=== PATIENT | male | born 1940 | race Caucasian/White ===

== ENCOUNTER 2017-09-27 10:52 | Observation (INO) | payer OTHER, MEDICARE ==
--- NOTE | 2017-09-27 12:33 | ER Document Report ---
ED General - General Chief Complaint: Shortness Of Breath Stated Complaint: BREATHING ISSUES Time Seen by Provider: 09/27/17 11:45 Notes: 77-year-old male. Previous heavy smoker. Increasing shortness of breath over the last several days. Went to see his primary care doctor provider earlier this week. Was prescribed an antibiotic and told to get labs and chest x-ray she was concerned about pneumonia. Prior to this episode he was having some fever and chills and thought he might of had the flu about a week prior. Denies history of COPD but does state he was the biggest smoker you would ever have met up until about 10 years ago. Would get bronchitis on a regular basis. Denies any fevers at this time. Does get winded with exertion. TRAVEL OUTSIDE OF THE [place] IN LAST 30 DAYS: No - HPI Onset: Last week Onset/Duration: Gradual - Related Data Allergies/Adverse Reactions: No Known Allergies Allergy (Verified 08/04/16 08:57) Past Medical History - General Information source: Patient - Social History Smoking Status: Former Smoker Cigarette use (# per day): No Smoking Education Provided: No Frequency of alcohol use: None Drug Abuse: None Lives with: Alone Family History: Reviewed & Not Pertinent - Past Medical History Cardiac Medical History: Denies: Hx Heart Attack, Hx Hypertension - WHITE COAT Pulmonary Medical History: Denies: Hx Asthma Neurological Medical History: Denies: Hx Cerebrovascular Accident, Hx Seizures Endocrine Medical History: Reports: Hx Diabetes Mellitus Type 2 Malignancy Medical History: Reports Hx Colorectal Cancer GI Medical History: Denies: Hx Hepatitis, Hx Hiatal Hernia, Hx Ulcer Infectious Medical History: Denies: Hx Hepatitis Past Surgical History: Reports: Hx Bowel Surgery - colostomy. Denies: Hx Open Heart Surgery, Hx Pacemaker Review of Systems - Review of Systems Constitutional: denies: Fever, Malaise, Weakness EENT: denies: Ear pain, Sinus pressure, Throat pain, Difficulty swallowing, Mouth pain Cardiovascular: denies: Chest pain, Palpitations, Heart racing, Dyspnea, Syncope , Dizziness Respiratory: Cough, Short of breath, Wheezing Gastrointestinal: denies: Abdominal pain, Diarrhea, Nausea Genitourinary: denies: Burning, Dysuria, Discharge Musculoskeletal: denies: Joint swelling, Muscle pain, Muscle stiffness, Neck pain, Deformity, Leg swelling, Ankle swelling Skin: denies: Change in color, Lesions, Lumps, Rash Hematologic/Lymphatic: denies: Anemia, Blood clots, Easy bleeding, Easy bruising Neurological/Psychological: denies: Confusion, Dementia, Weakness, Numbness Physical Exam - Vital signs Vitals: Temp Pulse Resp BP Pulse Ox 97.7 F 98 24 H 156/90 H 92 09/27/17 10:59 09/27/17 10:59 09/27/17 10:59 09/27/17 10:59 09/27/17 10:59 Interpretation: Normal - General General appearance: Appears well, Alert - HEENT Head: Normocephalic, Atraumatic Eyes: Normal Pupils: PERRL - Respiratory Respiratory status: No respiratory distress Chest status: Nontender Breath sounds: Rales, Wheezing Chest palpation: Normal - Cardiovascular Rhythm: Regular Heart sounds: Normal auscultation Murmur: No - Abdominal Inspection: Normal Distension: No distension Bowel sounds: Normal Tenderness: Nontender Organomegaly: No organomegaly Notes: Ostomy bag present - Back Back: Normal, Nontender - Extremities General upper extremity: Normal inspection, Nontender, Normal color, Normal ROM , Normal temperature. No: Edema General lower extremity: Normal inspection, Nontender, Normal color, Normal ROM , Normal temperature, Normal weight bearing. No: Edema, Marie's sign - Neurological Neuro grossly intact: Yes Cognition: Normal Orientation: AAOx4 Suki Coma Scale Eye Opening: Spontaneous Hawks Coma Scale Verbal: Oriented Hawks Coma Scale Motor: Obeys Commands Hawks Coma Scale Total: 15 Speech: Normal Motor strength normal: LUE, RUE, LLE, RLE Sensory: Normal - Psychological Associated symptoms: Normal affect, Normal mood - Skin Skin Temperature: Warm Skin Moisture: Dry Skin Color: Normal Course - Re-evaluation Re-evalutation: 09/27/17 14:19 Laboratory 09/27/17 09/27/17 09/27/17 13:18 13:18 13:18 WBC 9.3 RBC 5.54 Hgb 17.1 H Hct 49.6 MCV 90 MCH 31.0 MCHC 34.6 RDW 12.7 Plt Count 351 Seg Neutrophils % 63.8 Lymphocytes % 24.7 Monocytes % 9.0 Eosinophils % 1.9 Basophils % 0.6 Absolute Neutrophils 5.9 Absolute Lymphocytes 2.3 Absolute Monocytes 0.8 Absolute Eosinophils 0.2 Absolute Basophils 0.1 Sodium 142.6 Potassium 4.5 Chloride 102 Carbon Dioxide 29 Anion Gap 12 BUN 11 Creatinine 0.76 Est GFR ( Amer) > 60 Est GFR (Non-Af Amer) > 60 Glucose 119 H Calcium 9.5 Total Bilirubin 0.9 Direct Bilirubin 0.3 Neonat Total Bilirubin Not Reportable Neonat Direct Bilirubin Not Reportable Neonat Indirect Bili Not Reportable AST 34 ALT 38 Alkaline Phosphatase 80 Creatine Kinase 77 CK-MB (CK-2) 0.65 Troponin I < 0.012 NT-Pro-B Natriuret Pep 76 Total Protein 7.2 Albumin 4.4 Chest X-Ray 09/27/17 12:33 IMPRESSION: 1. COPD and mild chronic interstitial changes. 2. Possible 1.4 cm mass on the lateral view in the retrosternal airspace. Patient definitely has a COPD presentation. Of note 1.4 cm mass on the lateral view in the retrosternal airspace needs further evaluation. Will CT scan chest at this time as patient was a heavy smoker. Patient seems to be better at this time. Lungs with still small amount of wheezing but vital signs are normal and labs are normal. Patient is already on antibiotics and a inhaler but no steroids. Solu-Medrol was given. 09/27/17 16:10 We will admit at this time for COPD exacerbation. Consulted hospitalist. Dr. chinchilla to admit. - Vital Signs Vital signs: Temp Pulse Resp BP Pulse Ox 97.7 F 98 15 131/75 H 95 09/27/17 10:59 09/27/17 10:59 09/27/17 15:01 09/27/17 15:01 09/27/17 15:01 - Laboratory Result Diagrams: 09/27/17 13:18 09/27/17 13:18 Laboratory results interpreted by me: 09/27/17 09/27/17 13:18 13:18 Hgb 17.1 H Glucose 119 H - EKG Interpretation by Sd EKG shows normal: Sinus rhythm, Slater, Intervals, QRS Complexes, ST-T Waves Discharge - Discharge Clinical Impression: COPD exacerbation Condition: Good Disposition: ADMITTED INPATIENT Admitting Provider: Hospitalist - Dr. chinchilla Unit Admitted: Medical Floor Referrals: IGGY SANDS PA [Primary Care Provider] - Follow up as needed
[2017-09-27] MEDS ORDERED: METHYLPREDNISOLONE INJ 125 MG/2 ML SDV IV ONE (12:34)
[2017-09-27] MEDS ORDERED: ALBUTEROL SULFATE 0.083% NEB 2.5 MG/3 ML AMPUL NEB ONE (12:35)
[2017-09-27 13:35] LABS: ABSOLUTE BASOPHILS # (AUTO) 0.1 10^3/uL (0.0-0.2); ABSOLUTE EOSINOPHILS # (AUTO) 0.2 10^3/uL (0.0-0.6); ABSOLUTE LYMPHOCYTES (AUTO) 2.3 10^3/uL (0.5-4.7); ABSOLUTE MONOCYTES (AUTO) 0.8 10^3/uL (0.1-1.4); ABSOLUTE NEUT (AUTO) 5.9 10^3/uL (1.7-8.2); BASOPHILS % (AUTO) 0.6 % (0-2); EOSINOPHILS % (AUTO) 1.9 % (0-6); HEMATOCRIT 49.6 % (37.9-51.0); HEMOGLOBIN 17.1 g/dL (13.5-17.0); LYMPHOCYTES % (AUTO) 24.7 % (13-45); MEAN CORPUSCULAR HGB CONC 34.6 g/dL (32.0-36.0); MEAN CORPUSCULAR VOLUME 90 fl (80-97); PLATELET COUNT 351 10^3/uL (150-450); RED BLOOD COUNT 5.54 10^6/uL (4.35-5.55); RED CELL DISTRIBUTION WIDTH 12.7 % (11.5-14.0); SEGMENTED NEUTROPHILS % (AUTO) 63.8 % (42-78); TOTAL CELLS COUNTED % (AUTO) 100 %; WHITE BLOOD COUNT 9.3 10^3/uL (4.0-10.5)
--- NOTE | 2017-09-27 13:45 | RADIOLOGY REPORT (SQ) ---
EXAM DESCRIPTION: CHEST PA/LAT COMPLETED DATE/TIME: 09/27/2017 1:32 pm REASON FOR STUDY: sob COMPARISON: 02/10/2014 EXAM PARAMETERS: NUMBER OF VIEWS: two views TECHNIQUE: Digital Frontal and Lateral radiographic views of the chest acquired. RADIATION DOSE: NA LIMITATIONS: none FINDINGS: LUNGS AND PLEURA: COPD and mild chronic interstitial changes. Possible 1.4 cm mass on the lateral view in the retrosternal airspace not clearly visualized on the PA view. Lungs appear free of active infiltrates. No effusions. MEDIASTINUM AND HILAR STRUCTURES: No masses or contour abnormalities. HEART AND VASCULAR STRUCTURES: Heart normal size. No evidence for failure. BONES: No acute findings. HARDWARE: None in the chest. OTHER: No other significant finding. IMPRESSION: 1. COPD and mild chronic interstitial changes. 2. Possible 1.4 cm mass on the lateral view in the retrosternal airspace. TECHNICAL DOCUMENTATION: JOB ID: [id number] [email or web address]- All Rights Reserved
--- NOTE | 2017-09-27 13:53 | EKG REPORT ---
SEVERITY:- BORDERLINE ECG - SINUS RHYTHM PROBABLE LEFT ATRIAL ABNORMALITY : Confirmed by: Edward Rod MD 27-Sep-2017 13:52:17
[2017-09-27 13:57] LABS: ALANINE AMINOTRANSFERASE 38 U/L (21-72); ALBUMIN 4.4 g/dL (3.5-5.0); ALKALINE PHOSPHATASE 80 U/L (38-126); ANION GAP 12 (5-19); ASPARTATE AMINO TRANSFERASE 34 U/L (17-59); BILIRUBIN,DIRECT 0.3 mg/dL (0.0-0.4); BILIRUBIN,TOTAL 0.9 mg/dL (0.2-1.3); BLOOD UREA NITROGEN 11 mg/dL (7-20); CALCIUM 9.5 mg/dL (8.4-10.2); CARBON DIOXIDE 29 mmol/L (22-30); CHLORIDE 102 mmol/L (98-107); CREATINE KINASE 77 U/L (55-170); GLUCOSE 119 mg/dL (75-110); POTASSIUM 4.5 mmol/L (3.6-5.0); SODIUM 142.6 mmol/L (137-145); TOTAL PROTEIN 7.2 g/dL (6.3-8.2)
[2017-09-27 14:06] LABS: CREATINE KINASE MB 0.65 ng/mL (<4.55); NT PRO BNP 76 pg/mL (<450)
[2017-09-27 14:07] LABS: TROPONIN I < 0.012 ng/mL
--- NOTE | 2017-09-27 15:13 | RADIOLOGY REPORT (SQ) ---
EXAM DESCRIPTION: CT CHEST WITH COMPLETED DATE/TIME: 09/27/2017 2:43 pm REASON FOR STUDY: possible mass on xray COMPARISON: None. TECHNIQUE: CT scan of the chest performed using helical scanning technique with dynamic intravenous contrast injection. Images reviewed with lung, soft tissue and bone windows. Reconstructed coronal and sagittal MPR images reviewed. All images stored on PACS. All CT scanners at this facility use dose modulation, iterative reconstruction, and/or weight based d osing when appropriate to reduce radiation dose to as low as reasonably achievable (ALARA). [facility]: Dose Right [facility]: CareDose [facility]: Dose Right [facility]: Teradose 4D [facility]: Neocleus CONTRAST TYPE AND DOSE: contrast/concentration: Isovue 370.00 mg/ml; Total Contrast Delivered: 80.0 ml; Total Saline Delivered: 43.5 ml RENAL FUNCTION: Creatinine: 0.76 RADIATION DOSE: CT Rad equipment meets quality standard of care and radiation dose reduction techniq ues were employed. CTDIvol: 8.5 mGy. DLP: 343 mGy-cm. . LIMITATIONS: None. FINDINGS: LUNGS AND PLEURA: Changes of centrilobular emphysema with bullous disease in apices. The re is evidence of a spiculated mass contiguous with the anterior mediastinum in the left upper lobe m easuring 0.9 cm in transverse diameter x 0.9 cm in AP diameter x 1.2 cm in height (image number [id number] series 4). Findings are consistent with carcinoma. HILAR AND MEDIASTINAL STRUCTURES: Small AP window, pretracheal and right hilar nodes. HEART AND VASCULAR STRUCTURES: Atherosclerotic coronary artery calcification. Atherosclerotic change s of the thoracic aortic arch. UPPER ABDOMEN: Hiatal hernia is noted. No abnormality of the liver and right adrenal gland demonstr ate no abnormality. Prominent left adrenal gland. Spleen demonstrates a definite abnormality. Find ings consistent with accessory splenic tissue medial to the spleen adjacent to left adrenal. THYROID AND OTHER SOFT TISSUES: Multinodular thyroid gland with prominent hypodense mass left thyroid gland measuring 2.5 cm and calcified nodule lower pole right thyroid gland measuring 1.7 cm. Hypode nse nodule posterior lower pole right thyroid gland measured 1.3 cm. BONES: No significant finding. OTHER: No other significant finding. IMPRESSION: 1. Evidence 0.9 cm spiculated mass anterior segment left upper lobe. Carcinoma must be considered. 2. Changes of centrilobular emphysema and chronic bibasilar interstitial fibrosis. 3. Prominent left adrenal with adrenal adenoma not excluded. 4. Multinodular thyroid. TECHNICAL DOCUMENTATION: JOB ID: [id number] Quality ID # [id number]: Final reports with documentation of one or more dose reduction techniques (e.g., Au tomated exposure control, adjustment of the mA and/or kV according to patient size, use of iterative reconstruction technique) 2010 [email or web address]- All Rights Reserved
[2017-09-27] MEDS ORDERED: ONDANSETRON HCL INJ/PF 4 MG/2 ML SDV IV PRN (16:10)
[2017-09-27] MEDS ORDERED: ACETAMINOPHEN 325 MG TABLET PO PRN (16:10)
[2017-09-27] MEDS ORDERED: NORMAL SALINE 1000 ML 1,000 ML IV PRN (16:10)
[2017-09-27] MEDS ORDERED: BUDESONIDE NEB 0.5 MG/2 ML AMPUL NEB ONE (16:18)
[2017-09-27] MEDS ORDERED: GUAIFENESIN 600 MG TABLET.SA PO ONE (16:18)
[2017-09-27] MEDS ORDERED: DEXTROSE 50%-WATER 25 GM/50 ML DISP.SYRIN IV PRN ×2 (16:21)
[2017-09-27] MEDS ORDERED: GLUCAGON,HUMAN RECOMB 1 MG INJ IM PRN (16:21)
[2017-09-27] MEDS ORDERED: DEXTROSE 40% GEL 15 GM TUBE PO PRN ×2 (16:21)
[2017-09-27] MEDS ORDERED: (PENDING PHARMACY ID) (Nepafenac [Ilevro] 1 DROP) OP SCH (16:30)
[2017-09-27] MEDS ORDERED: BESIFLOXACIN HCL 0.6% OPH SUSP 5 ML BOTTLE OP SCH (16:30)
[2017-09-27] MEDS ORDERED: (PENDING PHARMACY ID) (Difluprednate [Durezol] 1 DROP) OP SCH (16:30)
[2017-09-27] MEDS ORDERED: LEVOFLOXACIN 500 MG TABLET PO ONE (17:30)
[2017-09-27] MEDS ORDERED: OSELTAMIVIR PHOSPHATE 75 MG CAPSULE PO SCH (18:00)
[2017-09-27] MEDS ORDERED: MAGNESIUM SULFATE/D5W 1 GM/100 ML RTUPB IV ONE (18:00)
[2017-09-27] MEDS: LACTOBACILLUS ACIDOPHILUS 250 MG TAB PO SCH (18:34)
[2017-09-27] MEDS: IPRATROPIUM/ALBUTEROL 0.5-2.5 MG/3 ML AMPUL NEB SCH ×2 (20:11→23:43)
--- NOTE | 2017-09-27 20:51 | PDOC H&P ---
History of Present Illness Admission Date/PCP: 09/27/17 16:31 SRINATH FRANCISCO Patient complains of: Shortness of breath History of Present Illness: MANISH SHANNON is a 77 year old male with a history of COPD and diabetes. Patient states starting about a week ago he was having some shortness of breath and cough. Patient stated he felt a little bit better but then the symptoms started again. Patient went to see his PCP 1 day prior to presenting to the ED for his shortness of breath. At home patient was having a cough productive of clear sputum. Patient was advised to get some Mucinex and he was given a prescription for Augmentin. Patient took 2 doses of the Augmentin and developed diarrhea and stopped taking the medication. Patient states he became more short of breath and therefore came here for further evaluation. Patient states he has a history of bronchitis. Patient smoked for 62 years prior to stopping 8 years ago. Patient denies any fevers or chills. She does not lie flat while sleeping however this is chronic in nature. Patient states he is just more comfortable that way. Patient denies any swelling in his lower extremities. In the ED patient was noted to have a clear chest x-ray and a CT scan that did show a nodule but otherwise clear. Patient was given steroids and Solu-Medrol. Hospitalist was called to observe patient for COPD exacerbation. Past Medical History Cardiac Medical History: Denies: Myocardial Infarction, Hypertension - WHITE COAT Pulmonary Medical History: Denies: Asthma Neurological Medical History: Denies: Seizures Endocrine Medical History: Reports: Diabetes Mellitus Type 2 Malignancy Medical History: Reports: Colorectal Cancer GI Medical History: Denies: Hepatitis, Hiatal Hernia Hematology: Denies: Anemia, Sickle Cell Disease Past Surgical History Past Surgical History: Reports: Other - Colostomy due to diverticulitis/colon cancer resulting in bowel resection Denies: Pacemaker Social History Lives with: Alone Smoking Status: Former Smoker Last Time Smoked: 8 years - Advance Directive Resuscitation Status: Full Code Family History Family History: Thyroid Disfunction Parental Family History Reviewed: No Children Family History Reviewed: No Sibling(s) Family History Reviewed.: No Medication/Allergy Home Medications: Ascorbic Acid [Vitamin C 500 mg Tablet] 500 mg PO DAILY 09/27/17 Cholecalciferol (Vitamin D3) [Vitamin D3 1000 Unit Tablet] 1,000 unit PO DAILY 09/27/17 Insulin Glargine,Hum.rec.anlog [Lantus] 24 unit SQ DAILY@1700 09/27/17 Multivitamin [Tab-A-Ilene (Multiple Vitamin) Tablet] 1 tab PO DAILY 09/27/17 [place]-3 Fatty Acids/Fish Oil [Fish Oil 1,000 mg Capsule] 1 cap PO DAILY Vitamin B Complex [B Complex] 1 tab PO DAILY 09/27/17 Allergies/Adverse Reactions: No Known Allergies Allergy (Verified 08/04/16 08:57) Review of Systems Constitutional: ABSENT: chills, fever(s), headache(s), weight gain, weight loss Eyes: ABSENT: visual disturbances Ears: ABSENT: hearing changes Cardiovascular: ABSENT: chest pain, edema, orthropnea, palpitations Respiratory: PRESENT: cough, dyspnea, sputum. ABSENT: hemoptysis Gastrointestinal: PRESENT: diarrhea. ABSENT: abdominal pain, constipation, hematemesis, hematochezia, nausea, vomiting Genitourinary: ABSENT: dysuria, hematuria Musculoskeletal: ABSENT: joint swelling Integumentary: ABSENT: rash, wounds Neurological: ABSENT: abnormal gait, abnormal speech, confusion, dizziness, focal weakness, syncope Psychiatric: ABSENT: anxiety, depression, homidical ideation, suicidal ideation Endocrine: ABSENT: cold intolerance, heat intolerance, polydipsia, polyuria Hematologic/Lymphatic: ABSENT: easy bleeding, easy bruising Physical Exam Vital Signs: Temp Pulse Resp BP Pulse Ox 97.7 F 98 25 H 137/90 H 94 09/27/17 10:59 09/27/17 10:59 09/27/17 18:01 09/27/17 18:01 09/27/17 18:01 General appearance: PRESENT: no acute distress, well-developed, well-nourished Head exam: PRESENT: normocephalic Eye exam: PRESENT: EOMI. ABSENT: scleral icterus Ear exam: PRESENT: normal external ear exam Mouth exam: PRESENT: moist Neck exam: ABSENT: carotid bruit, JVD, lymphadenopathy, thyromegaly Respiratory exam: PRESENT: crackles - Bilateral bases, unlabored - Patient speaking in complete sentences without any signs of distress or pauses, wheezes - Intermittent wheezing. ABSENT: rales, rhonchi Cardiovascular exam: PRESENT: RRR. ABSENT: diastolic murmur, rubs, systolic murmur GI/Abdominal exam: PRESENT: normal bowel sounds, soft, other - Colostomy in place with air. ABSENT: distended, guarding, mass, organolmegaly, rebound, tenderness Rectal exam: PRESENT: deferred Extremities exam: PRESENT: full ROM. ABSENT: calf tenderness, clubbing, pedal edema Neurological exam: PRESENT: alert, awake, oriented to person, oriented to place , oriented to time, oriented to situation, CN II-XII grossly intact. ABSENT: motor sensory deficit Psychiatric exam: PRESENT: appropriate affect, normal mood. ABSENT: homicidal ideation, suicidal ideation Skin exam: PRESENT: dry, intact, warm. ABSENT: cyanosis, rash Results Laboratory Results: 09/27/17 09/27/17 09/27/17 13:18 13:18 13:18 WBC 9.3 RBC 5.54 Hgb 17.1 H Hct 49.6 MCV 90 MCH 31.0 MCHC 34.6 RDW 12.7 Plt Count 351 Seg Neutrophils % 63.8 Lymphocytes % 24.7 Monocytes % 9.0 Eosinophils % 1.9 Basophils % 0.6 Absolute Neutrophils 5.9 Absolute Lymphocytes 2.3 Absolute Monocytes 0.8 Absolute Eosinophils 0.2 Absolute Basophils 0.1 Sodium 142.6 Potassium 4.5 Chloride 102 Carbon Dioxide 29 Anion Gap 12 BUN 11 Creatinine 0.76 Est GFR ( Amer) > 60 Est GFR (Non-Af Amer) > 60 Glucose 119 H POC Glucose Calcium 9.5 Total Bilirubin 0.9 Direct Bilirubin 0.3 AST 34 ALT 38 Alkaline Phosphatase 80 Creatine Kinase 77 CK-MB (CK-2) 0.65 Troponin I < 0.012 NT-Pro-B Natriuret Pep 76 Total Protein 7.2 Albumin 4.4 09/27/17 18:38 WBC RBC Hgb Hct MCV MCH MCHC RDW Plt Count Seg Neutrophils % Lymphocytes % Monocytes % Eosinophils % Basophils % Absolute Neutrophils Absolute Lymphocytes Absolute Monocytes Absolute Eosinophils Absolute Basophils Sodium Potassium Chloride Carbon Dioxide Anion Gap BUN Creatinine Est GFR ( Amer) Est GFR (Non-Af Amer) Glucose POC Glucose 183 H Calcium Total Bilirubin Direct Bilirubin AST ALT Alkaline Phosphatase Creatine Kinase CK-MB (CK-2) Troponin I NT-Pro-B Natriuret Pep Total Protein Albumin Impressions: Chest X-Ray 09/27/17 12:33 IMPRESSION: 1. COPD and mild chronic interstitial changes. 2. Possible 1.4 cm mass on the lateral view in the retrosternal airspace. Chest CT 09/27/17 14:15 IMPRESSION: 1. Evidence 0.9 cm spiculated mass anterior segment left upper lobe. Carcinoma must be considered. 2. Changes of centrilobular emphysema and chronic bibasilar interstitial fibrosis. 3. Prominent left adrenal with adrenal adenoma not excluded. 4. Multinodular thyroid. Assessment & Plan - Diagnosis (1) COPD exacerbation Is this a current diagnosis for this admission?: Yes Plan: She with COPD exacerbation. Patient with known tobacco history in the past but has since quit. Patient on Solu-Medrol, Levaquin, DuoNeb's, budesonide and Singulair. Patient is also on Mucinex. (2) Type 2 diabetes mellitus Is this a current diagnosis for this admission?: Yes Plan: Patient normally takes insulin at home. Patient started on sliding scale insulin here. Patient may have higher blood glucoses considering that patient is on Solu-Medrol. Patient last hemoglobin A1c was reported to be 7.1 per the patient. (3) Lung mass Is this a current diagnosis for this admission?: Yes Plan: Patient with a left upper lobe spiculated mass. This can be further evaluated as outpatient. Will consult pulmonology to see if they recommend anything acutely. There is definitely concern for malignancy considering patient prolong spoke history of 62 years. Patient did quit 8 years ago however patient still at risk. - Time Time Spent: 30 to 50 Minutes Anticipated discharge: Home Within: within 24 hours - Inpatient Certification Medical Necessity: Failure to Improve With Outpatient Therapy, Need for Nebulizer Therapy and Monitoring of Response
[2017-09-27] MEDS ORDERED: MONTELUKAST SODIUM 10 MG TABLET PO SCH (22:00)
[2017-09-27] MEDS ORDERED: INSULIN GLARGINE,HUM.REC.ANLOG 1,000 UNIT/10 ML UNIT SUBCUT SCH (22:00)
[2017-09-27] MEDS: METHYLPREDNISOLONE INJ 40 MG/1 ML SDV IV SCH (22:03)
[2017-09-27] MEDS: GUAIFENESIN 600 MG TABLET.SA PO SCH (22:05)
[2017-09-27] MEDS: INSULIN LISPRO 100 UNIT/ML 3 ML VIAL SUBCUT PRN (22:12)
[2017-09-28] MEDS: IPRATROPIUM/ALBUTEROL 0.5-2.5 MG/3 ML AMPUL NEB SCH ×2 (04:18→08:10)
[2017-09-28] MEDS: METHYLPREDNISOLONE INJ 40 MG/1 ML SDV IV SCH (04:58)
[2017-09-28] MEDS ORDERED: LANSOPRAZOLE 30 MG TAB.RAP.DR PO SCH (06:00)
[2017-09-28 06:12] LABS: HEMATOCRIT 43.8 % (37.9-51.0); MEAN CORPUSCULAR HEMOGLOBIN 31.1 pg (27.0-33.4); MEAN CORPUSCULAR HGB CONC 34.2 g/dL (32.0-36.0); MEAN CORPUSCULAR VOLUME 91 fl (80-97); PLATELET COUNT 336 10^3/uL (150-450); RED BLOOD COUNT 4.82 10^6/uL (4.35-5.55); RED CELL DISTRIBUTION WIDTH 12.9 % (11.5-14.0); WHITE BLOOD COUNT 7.4 10^3/uL (4.0-10.5)
[2017-09-28 06:33] LABS: ANION GAP 16 (5-19); BLOOD UREA NITROGEN 18 mg/dL (7-20); CALCIUM 9.2 mg/dL (8.4-10.2); CHLORIDE 105 mmol/L (98-107); GLUCOSE 268 mg/dL (75-110); POTASSIUM 4.5 mmol/L (3.6-5.0); SODIUM 140.4 mmol/L (137-145)
[2017-09-28 06:40] LABS: CARBON DIOXIDE 19 mmol/L (22-30)
[2017-09-28] MEDS: INSULIN LISPRO 100 UNIT/ML 3 ML VIAL SUBCUT PRN ×2 (09:14→12:03)
[2017-09-28] MEDS: GUAIFENESIN 600 MG TABLET.SA PO SCH (09:14)
[2017-09-28] MEDS: LACTOBACILLUS ACIDOPHILUS 250 MG TAB PO SCH (09:14)
[2017-09-28] MEDS ORDERED: LEVOFLOXACIN 500 MG TABLET PO SCH (10:00)
[2017-09-28] MEDS ORDERED: ALBUTEROL SULFATE 0.083% NEB 2.5 MG/3 ML AMPUL NEB PRN (11:06)
[2017-09-28 12:09] VITALS: BP 132/59
--- NOTE | 2017-09-28 12:48 | DISCHARGE SUMMARY E ---
Discharge Summary NAME: MANISH SHANNON : 1940 AGE: 77Y ADMITTED: 09/27/2017 DISCHARGED: 09/28/2017 CODE STATUS: FULL CODE. PRIMARY CARE PROVIDER: SRINATH Vallejo DISCHARGE DIAGNOSES: 1. Chronic obstructive pulmonary disease exacerbation. 2. Vtarf-nd-odzgenr hypoxemic respiratory failure, no long requiring O2. 3. Diabetes mellitus type 2. 4. Left upper lobe spiculated mass. DISCHARGE MEDICATIONS: 1. Fish oil 1000 mg p.o. daily. 2. Prednisone 60 mg taper. 3. Singulair 10 mg p.o. at hour of sleep, 60 tablets with 0 refills. 4. Levaquin 500 mg p.o. daily, 6 tablets with 0 refills. 5. Ventolin 2.5 mg nebs q.6 hours p.r.n., 30 with 0 refills. 6. Vitamin B complex 1 tablet p.o daily. 7. Multivitamin 1 tablet p.o. daily. 8. Lantus 24 units subcu daily. 9. Vitamin D 1000 units p.o. daily. 10. Vitamin C 500 mg p.o. daily. DIET: Diabetic, heart healthy. ACTIVITY: As tolerated. CONDITION: Fair. DIAGNOSTICS: Lab values are as follow: Hematology obtained on 09/28/2017: WBCs are 7.4, hemoglobin is 15.0, hematocrit is 43.8, platelet count is 336,000. Chemistry obtained on 09/28/2017: Sodium is 140, potassium 4.5, chloride is 105, carbon dioxide 19, BUN 18, creatinine 0.81, glucose 268, calcium 9.2, magnesium is 2.1, bilirubin is 0.9, AST 34, ALT 38, alk phos 80, CK 77, CK-MB is 0.65, troponin is 0.012, BNP is 76, total protein 7.2, albumin 4.4. Chest x-ray obtained on 09/27/2017 reveals COPD with mild interstitial changes. Possible 1.4 cm mass on the lateral view of the retrosternal air space. Chest CT obtained on 09/27/2017 reveals evidence of a 0.9 cm spiculated mass anterior segment of the left upper lobe. Changes of central lobular emphysema and chronic bibasilar interstitial fibrosis. Prominent left adrenal and adrenal adenoma cannot be excluded. Multinodular thyroid. PHYSICAL EXAMINATION: GENERAL: On examination, the patient is a well-developed, reasonably nourished, 77-year-old male who is awake, alert, and oriented to person, place, time, and situation. He is verbal, conversational, and does not appear to be in any acute distress. VITAL SIGNS: Temperature 97.2, pulse 115, respirations 20, blood pressure 149/81, oxygen saturation is 94% on room air. SKIN: Warm and dry. No rash. He is not diaphoretic. HEENT: Pupils equal, round, reactive to light and accommodation. Conjunctivae are pink. No evidence of JVP. CARDIOVASCULAR: Heart is regular. There is no murmur or rub. CHEST: Diminished, symmetrical, unlabored. ABDOMEN: Soft, nontender, nondistended. BACK: No CVA tenderness or sacral edema. EXTREMITIES: No clubbing, cyanosis, or edema. PSYCHIATRIC: Appropriate affect. Pleasant mood. HISTORY OF PRESENT ILLNESS: The patient is a 77-year-old male with a past medical history of COPD and tobacco dependency. The patient presented to the emergency department with a chief complaint of shortness of breath. The patient states that about a week ago he was having shortness of breath and cough. The patient felt a little bit better but the symptoms restarted again. The patient went to see his primary care provider the day of presentation and was noted to be quite short of breath and was sent to the ED because of this. While at home, the patient was having cough, production of clear sputum. The patient was advised to get some Mucinex and was given a prescription for Augmentin. The patient took 2 doses of Augmentin and developed diarrhea and stopped taking the medication. The patient became more short of breath and was worried that he may have bronchitis. The patient has a 62-year pack history but stopped smoking about 8 years ago. The patient denies any fever or chills. The patient does not lie flat while sleeping, however, this is chronic in nature. The patient stated he just feels comfortable that way. The patient denies any swelling of his lower extremities. While in the emergency department, the patient's chest x-ray was suggestive of possible nodule in the left upper lobe. CT confirmed a spiculated nodule in this area and the patient was treated with steroids and was referred to the hospitalist for admission and management. HOSPITAL COURSE: Patient was admitted to continuous telemetry unit. The patient was placed on Mucinex, scheduled nebulizers, p.r.n. nebulizers, and steroids. The patient was additionally started on Singulair. The patient had complete resolution of symptoms and was off oxygen within 12 hours of treatment. The patient is able to fully completely sentences without issue and ambulating the room without any significant hypoxia. The patient has not worn his oxygen since 2 a.m. and overall feels his symptoms are back to baseline. Did discuss findings of the CT with the patient and the patient is agreeable to outpatient followup with workup of this spiculated mass. Time spent on this discharge including assessment, plan, physical examination, patient education, and review of records is 25 minutes. DICTATING PHYSICIAN: DEMARCO THOMPSON NP [id number] Y#: [id number] ID: [id number] JOB#: [id number] ACCT: [id number] cc:GODWIN SANTANA M.D., MICHAEL NP >
[2017-09-28] MEDS ORDERED: INSULIN GLARGINE,HUM.REC.ANLOG 1,000 UNIT/10 ML UNIT SUBCUT SCH (17:00)
[2017-09-28] MEDS ORDERED: PREDNISONE 20 MG TABLET PO SCH (18:00)
[2017-09-29] MEDS ORDERED: ASCORBIC ACID 500 MG TABLET PO SCH (10:00)
[2017-09-29] MEDS ORDERED: (PENDING PHARMACY ID) (Omega-3 Fatty Acids/Fish Oil [Fish Oil 1,000 Mg Capsule] 1 CAP) PO SCH (10:00)
[2017-09-29] MEDS ORDERED: (PENDING PHARMACY ID) (Vitamin B Complex [B Complex] 1 TAB) PO SCH (10:00)
[2017-09-29] MEDS ORDERED: CHOLECALCIFEROL (D3) 1,000 UNIT TABLET PO SCH (10:00)
[2017-09-29] MEDS ORDERED: MULTIVITAMIN TABLET PO SCH (10:00)
== END 2017-09-28 12:17 | disposition home or self-care (01) ==
LOC: ER 10:52 → INTOOBSV 16:31 → EH 16:31 → 4W 19:05
PROVIDERS: ADMIT Emergency Medicine; ATTEND Emergency Medicine
DX: J44.1 Chronic obstructive pulmonary disease with (acute) exacerbation (principal); J96.21 Acute and chronic respiratory failure with hypoxia; E11.9 Type 2 diabetes mellitus without complications; R91.8 Other nonspecific abnormal finding of lung field; R19.7 Diarrhea, unspecified; Z87.891 Personal history of nicotine dependence; Z85.038 Personal history of other malignant neoplasm of large intestine; Z93.3 Colostomy status; Z87.19 Personal history of other diseases of the digestive system; Z90.49 Acquired absence of other specified parts of digestive tract; Z79.4 Long term (current) use of insulin
CPT/HCPCS: 93005; 94640 ×3; 99285; 96374; 36415 ×2; 82553; 82962 ×2; 82550; 83735; 85025; 85027; 80048; 80053; 84484; 83880; 71046; 71260; 93010; J1815 ×3; J2920 ×2; J2930; J3475; J3490; J7030; J7620 ×2

== ENCOUNTER 2018-12-21 06:04 | Inpatient (IN) | payer OTHER, MEDICARE ==
[2018-12-21] MEDS ORDERED: ADENOSINE INJ/PF 6 MG/2 ML SDV IV ONE (06:23)
[2018-12-21] MEDS ORDERED: DILTIAZEM HCL INJ 25 MG/5 ML VIAL IV ONE (06:26)
[2018-12-21] MEDS ORDERED: DILTIAZEM HCL INJ 25 MG/5 ML VIAL ONE (06:27)
[2018-12-21] MEDS ORDERED: NORMAL SALINE 1000 ML 1,000 ML IV ONE (06:27)
[2018-12-21 06:38] LABS: ABSOLUTE MONOCYTES (AUTO) 2.5 10^3/uL (0.1-1.4); ABSOLUTE NEUT (AUTO) 12.8 10^3/uL (1.7-8.2); BASOPHILS % (AUTO) 0.1 % (0-2); EOSINOPHILS % (AUTO) 0.3 % (0-6); HEMATOCRIT 45.7 % (37.9-51.0); HEMOGLOBIN 15.3 g/dL (13.5-17.0); LYMPHOCYTES % (AUTO) 11.3 % (13-45); MEAN CORPUSCULAR HEMOGLOBIN 30.9 pg (27.0-33.4); MEAN CORPUSCULAR HGB CONC 33.5 g/dL (32.0-36.0); MEAN CORPUSCULAR VOLUME 92 fl (80-97); MONOCYTES % (AUTO) 14.6 % (3-13); PLATELET COUNT 322 10^3/uL (150-450); RED BLOOD COUNT 4.96 10^6/uL (4.35-5.55); RED CELL DISTRIBUTION WIDTH 12.8 % (11.5-14.0); SEGMENTED NEUTROPHILS % (AUTO) 73.7 % (42-78); TOTAL CELLS COUNTED % (AUTO) 100 %; WHITE BLOOD COUNT 17.4 10^3/uL (4.0-10.5)
[2018-12-21] MEDS ORDERED: DILTIAZEM HCL/D5W 125 MG/125 ML RTUINJ IV PRN (06:46)
[2018-12-21 07:04] LABS: ALANINE AMINOTRANSFERASE 25 U/L (21-72); ALBUMIN 3.3 g/dL (3.5-5.0); ALKALINE PHOSPHATASE 101 U/L (38-126); ANION GAP 16 (5-19); ASPARTATE AMINO TRANSFERASE 21 U/L (17-59); BILIRUBIN,DIRECT 0.5 mg/dL (0.0-0.4); BILIRUBIN,TOTAL 0.8 mg/dL (0.2-1.3); BLOOD UREA NITROGEN 23 mg/dL (7-20); CALCIUM 9.1 mg/dL (8.4-10.2); CARBON DIOXIDE 26 mmol/L (22-30); CHLORIDE 100 mmol/L (98-107); CREATINE KINASE 50 U/L (55-170); GLUCOSE 170 mg/dL (75-110); POTASSIUM 4.2 mmol/L (3.6-5.0); SODIUM 142.3 mmol/L (137-145)
[2018-12-21 07:17] LABS: CREATINE KINASE MB 0.97 ng/mL (<4.55)
[2018-12-21 07:21] LABS: TROPONIN I 0.133 ng/mL
--- NOTE | 2018-12-21 07:43 | EKG REPORT ---
SEVERITY:- ABNORMAL ECG - ATRIAL FIBRILLATION WITH RAPID V-RATE REPOLARIZATION ABNORMALITY, PROB RATE RELATED : Confirmed by: Edward Rod MD 21-Dec-2018 07:42:42
--- NOTE | 2018-12-21 07:47 | RADIOLOGY REPORT (SQ) ---
EXAM DESCRIPTION: XR CHEST 1 VIEW COMPLETED DATE/TME: 12/21/2018 06:27 CLINICAL HISTORY: SOB, tachycardia, A-fib COMPARISON: 09/27/2017 FINDINGS: Single frontal view of the chest. Cardiomediastinal silhouette: Atherosclerotic calcification and tortuosity of thoracic aorta. Heart is not enlarged. Low lung volumes. Lungs: Patchy right mid lung and left hilar airspace opacity. No pneumothorax or large effusion. Chronic appearing interstitial opacities. Bones: Degenerative change of the spine and shoulders. Upper abdomen: No abnormality identified. IMPRESSION: 1. Interval development of patchy opacities in the right mid lung and left lung base may represent atelectasis or developing pneumonic process. 2. Obstructive lung disease.
[2018-12-21] MEDS ORDERED: LEVOFLOXACIN 750 MG/D5W RTU 750 MG/150 ML RTUPB IV ONE (07:51)
[2018-12-21 08:19] LABS: ARTERIAL BLOOD BASE EXCESS -0.5 mmol/L; ARTERIAL BLOOD FIO2 2 L; ARTERIAL BLOOD H2CO3 1.23 mmol/L (1.05-1.35); ARTERIAL BLOOD HCO3 24.4 mmol/L (20-24); ARTERIAL BLOOD O2 SATURATION 94.4 % (94-98); ARTERIAL BLOOD PH 7.39 (7.35-7.45); ARTERIAL BLOOD PO2 71.9 mmHg (80-100); ARTERIAL BLOOD TOTAL CO2 25.6 mmol/L (23-27)
--- NOTE | 2018-12-21 10:03 | PDOC H&P ---
History of Present Illness Admission Date/PCP: SRINATH FRANCISCO History of Present Illness: MANISH SHANNON is a 78 year old male who smoked for 62 years, quit 10 years ago, and has a history of insulin-dependent diabetes, who comes in with a 4-day history of shortness of breath. He said he was out cutting grass and was around a lot of pollen and thought that was what was causing him to have trouble with his breathing. He said is gotten progressively worse. He has not had much of a cough, and what he has has not been productive. He is not been running a fever. He denies any chest pain or palpitations. When he came in he was noted to have a substantially elevated heart rate, which looked like atrial fibrillation with RVR. He was put on a Cardizem drip and has subsequently converted back to a sinus rhythm. He said he had at least one episode like this before, last year when he was in the hospital in [place] and got a nebulizer treatment and his heart rhythm flipped over in atrial fibrillation. He said that this converted back to normal rhythm also. He has no history of coronary artery disease, [place], cardiac catheterization, or heart surgery of any sort. He said he had a stress test many years ago and does not remember much about it except he thinks it was normal. He was placed on some oxygen in the ER. His chest x-ray showed a multifocal pneumonia. Past Medical History Cardiac Medical History: Denies: Myocardial Infarction Comment Only: Hypertension - [place] Pulmonary Medical History: Denies: Asthma Neurological Medical History: Denies: Seizures Endocrine Medical History: Reports: Diabetes Mellitus Type 2 Malignancy Medical History: Reports: Colorectal Cancer GI Medical History: Denies: Hepatitis, Hiatal Hernia Hematology: Denies: Anemia, Sickle Cell Disease Past Surgical History Past Surgical History: Reports: Other - Colostomy due to diverticulitis/colon cancer resulting in bowel resection Denies: Pacemaker Social History Smoking Status: Unknown if Ever Smoked Family History Family History: Thyroid Disfunction Parental Family History Reviewed: Yes - Hypothyroidism Children Family History Reviewed: Yes - None known Sibling(s) Family History Reviewed.: Yes - None known Medication/Allergy Home Medications: Ascorbic Acid [Vitamin C 500 mg Tablet] 500 mg PO DAILY 09/27/17 Cholecalciferol (Vitamin D3) [Vitamin D3 1000 Unit Tablet] 1,000 unit PO DAILY 09/27/17 Insulin Glargine,Hum.rec.anlog [Lantus] 24 unit SQ DAILY@1700 09/27/17 Multivitamin [Tab-A-Ilene (Multiple Vitamin) Tablet] 1 tab PO DAILY 09/27/17 Vitamin B Complex [B Complex] 1 tab PO DAILY 09/27/17 Albuterol Sulfate [Ventolin 0.083% Neb 2.5 mg/3 mL Ampul] 2.5 mg NEB [id number] PRN #30 vial.neb 09/28/17 Levofloxacin [Levaquin 500 mg Tablet] 500 mg PO DAILY #6 tablet 09/28/17 Montelukast Sodium [Singulair 10 mg Tablet] 10 mg PO QHS #60 tablet 09/28/17 [place]-3 Fatty Acids/Fish Oil [Fish Oil 1,000 mg Capsule] 1 cap PO DAILY 09/28/17 Prednisone [Deltasone 10 mg Tablet] 10 mg PO ASDIR PRN #21 tablet 09/28/17 Allergies/Adverse Reactions: albuterol Adverse Reaction (Intermediate, Verified 12/21/18 06:19) Tachycardia Review of Systems All systems: reviewed and no additional remarkable complaints except as stated - All systems were reviewed and were negative except as noted above Physical Exam Vital Signs: Temp Pulse Resp BP Pulse Ox 98.2 F 67 16 128/66 H 95 12/21/18 06:10 12/21/18 06:10 12/21/18 09:46 12/21/18 09:46 12/21/18 09:46 Intake & Output 12/20/18 12/21/18 12/22/18 06:59 06:59 06:59 Intake Total 1184 Balance 1184 Weight 72.6 kg General appearance: PRESENT: no acute distress, cooperative, disheveled, hard of hearing Head exam: PRESENT: atraumatic, normocephalic Eye exam: PRESENT: EOMI, PERRLA. ABSENT: conjunctival injection, nystagmus, scleral icterus Ear exam: PRESENT: normal external ear exam Mouth exam: PRESENT: dry mucosa, neck supple Throat exam: ABSENT: post pharyngeal erythema Neck exam: PRESENT: full ROM. ABSENT: carotid bruit, JVD, lymphadenopathy, meningismus, tenderness, thyromegaly Respiratory exam: PRESENT: crackles - Bibasilar, decreased breath sounds - Generalized, symmetrical, unlabored. ABSENT: accessory muscle use, chest wall tenderness, prolonged expiratory phas, rhonchi, tachypnea, wheezes Cardiovascular exam: PRESENT: RRR, +S1, +S2. ABSENT: diastolic murmur, systolic murmur Pulses: PRESENT: normal carotid pulses Vascular exam: PRESENT: normal capillary refill GI/Abdominal exam: PRESENT: normal bowel sounds, soft. ABSENT: distended, guarding, rebound, tenderness Extremities exam: ABSENT: clubbing, pedal edema Musculoskeletal exam: PRESENT: normal inspection. ABSENT: deformity Neurological exam: PRESENT: alert, awake, oriented to person, oriented to place, oriented to time, oriented to situation, CN II-XII grossly intact - Did have some presbycusis. ABSENT: motor sensory deficit Psychiatric exam: PRESENT: appropriate affect, normal mood Skin exam: PRESENT: dry, warm Results Laboratory Results: 12/21/18 06:30 12/21/18 06:30 12/21/18 12/21/18 12/21/18 06:30 06:30 07:25 WBC 17.4 H RBC 4.96 Hgb 15.3 Hct 45.7 MCV 92 MCH 30.9 MCHC 33.5 RDW 12.8 Plt Count 322 Seg Neutrophils % 73.7 Lymphocytes % 11.3 L Monocytes % 14.6 H Eosinophils % 0.3 Basophils % 0.1 Absolute Neutrophils 12.8 H Absolute Lymphocytes 2.0 Absolute Monocytes 2.5 H Absolute Eosinophils 0.0 Absolute Basophils 0.0 Carbonic Acid HCO3/H2CO3 Ratio ABG pH ABG pCO2 ABG pO2 ABG HCO3 ABG O2 Saturation ABG Base Excess FiO2 Sodium 142.3 Potassium 4.2 Chloride 100 Carbon Dioxide 26 Anion Gap 16 BUN 23 H Creatinine 0.78 Est GFR ( Amer) > 60 Est GFR (Non-Af Amer) > 60 Glucose 170 H Lactic Acid 1.4 Calcium 9.1 Magnesium 2.0 Total Bilirubin 0.8 AST 21 ALT 25 Alkaline Phosphatase 101 Total Protein 6.0 L Albumin 3.3 L 12/21/18 07:54 WBC RBC Hgb Hct MCV MCH MCHC RDW Plt Count Seg Neutrophils % Lymphocytes % Monocytes % Eosinophils % Basophils % Absolute Neutrophils Absolute Lymphocytes Absolute Monocytes Absolute Eosinophils Absolute Basophils Carbonic Acid 1.23 HCO3/H2CO3 Ratio 19:1 ABG pH 7.39 ABG pCO2 41.0 ABG pO2 71.9 L ABG HCO3 24.4 H ABG O2 Saturation 94.4 ABG Base Excess -0.5 FiO2 2 L Sodium Potassium Chloride Carbon Dioxide Anion Gap BUN Creatinine Est GFR ( Amer) Est GFR (Non-Af Amer) Glucose Lactic Acid Calcium Magnesium Total Bilirubin AST ALT Alkaline Phosphatase Total Protein Albumin 12/21/18 12/21/18 06:30 06:30 Creatine Kinase 50 L CK-MB (CK-2) 0.97 Troponin I 0.133 NT-Pro-B Natriuret Pep 1989 H Impressions: Chest X-Ray 12/21/18 06:27 IMPRESSION: 1. Interval development of patchy opacities in the right mid lung and left lung base may represent atelectasis or developing pneumonic process. 2. Obstructive lung disease. Assessment and Plan - Diagnosis (1) Multifocal pneumonia Is this a current diagnosis for this admission?: Yes Plan: He got some Levaquin in the ER. I am going to continue him on Rocephin and doxycycline. Blood cultures are pending. We will obtain a sputum culture if he can produce a specimen, but his cough has not been productive thus far. (2) Atrial fibrillation with rapid ventricular response Is this a current diagnosis for this admission?: Yes Plan: Now resolved. Converted to a sinus rhythm. No prior cardiac history. He did have one elevated troponin, but no chest pain. We will trend out his troponins. I spoke with Dr. Myers, who recommended putting him on sotalol now that he is back in a sinus rhythm and taking him off the Cardizem drip. He does not recommend anticoagulation at this time, we did recommend starting him on aspirin. He will likely need a Holter monitor set up for him after discharge. He will also probably need a stress test after discharge once his pneumonia has resolved. (3) Type 2 diabetes mellitus Qualifiers: Diabetes mellitus shelter insulin use: with oil heaterman use Diabetes mellitus complication status: without complication Qualified Code(s): E11.9 - Type 2 diabetes mellitus without complications; Z79.4 - [facility] (current) use of insulin Is this a current diagnosis for this admission?: Yes Plan: We will continue his home insulin and put him on a consistent carbohydrate diet. - Time Time Spent with patient: 70 minutes Time Spent with patient: 35 or more minutes - Inpatient Certification Based on my medical assessment, after consideration of the patient's comorbidities, presenting symptoms, or acuity I expect that the services needed warrant INPATIENT care.: Yes I certify that my determination is in accordance with my understanding of Medicare's requirements for reasonable and necessary INPATIENT services [42 CFR 412.3e].: Yes Medical Necessity: Need Close Monitoring Due to Risk of Patient Decompensation, Need For Continuous Telemetry Monitoring, Need for IV Antibiotics
[2018-12-21] MEDS: ASPIRIN 81 MG TABLET, CHEWABLE PO SCH (10:22)
[2018-12-21] MEDS: SOTALOL HCL 80 MG TABLET PO SCH ×2 (10:22→22:09)
[2018-12-21] MEDS: LEVALBUTEROL HCL NEB 0.63 MG/3 ML AMPUL NEB PRN ×3 (13:12→21:13)
[2018-12-21] MEDS: CEFTRIAXONE SODIUM 1,000 MG in DEXTROSE 5%-WATER 50 ML IV SCH (13:56)
--- NOTE | 2018-12-21 14:21 | ER Document Report ---
Entered by DEMARCO VILLAFANA SCRIBE 12/21/18 0626 Acting as scribe for:SHARON ALBA MD ED General - General Chief Complaint: Shortness Of Breath Stated Complaint: TROUBLE BREATHING Time Seen by Provider: 12/21/18 06:19 Information source: Patient, [facility] Records Notes: Patient is a 78-year-old male presenting to the emergency department complaining of shortness of breath for the last four days. Patient describes this difficulty breathing as if feeling like his breathing is "labored". Patient states that the only medication he is currently taking is insulin. Patient states he has an allergy to albuterol, adding that he thinks it just makes his heart race. Patient states he is unsure if he has ever been given xopenex. Patient denies having any chest pain or coughing anything up. TRAVEL OUTSIDE OF THE [place] IN LAST 30 DAYS: No - Related Data Allergies/Adverse Reactions: albuterol Adverse Reaction (Intermediate, Verified 12/21/18 06:19) Tachycardia Past Medical History - General Information source: Patient, [facility] Records - Social History Smoking Status: Former Smoker - Quit in 2009 Cigarette use (# per day): No Chew tobacco use (# tins/day): No Smoking Education Provided: No Frequency of alcohol use: None Drug Abuse: None Occupation: Retired Family History: Thyroid Disfunction - Past Medical History Cardiac Medical History: Reports: Other Pulmonary Medical History: Reports: Hx COPD Endocrine Medical History: Reports: Hx Diabetes Mellitus Type 2 Malignancy Medical History: Reports Hx Colorectal Cancer, Reports Hx Lung Cancer Past Surgical History: Reports: Hx Bowel Surgery - colostomy, Hx Colostomy - Colostomy was placed due to bowel resection related to diverticulitis and c, Other - Left upper lobe lung cancer resected in 2018. Mass found on COPD admission Review of Systems - Review of Systems Constitutional: No symptoms reported EENT: No symptoms reported Cardiovascular: See HPI. denies: Chest pain Respiratory: See HPI, Short of breath, Other - labored breathing Gastrointestinal: No symptoms reported Genitourinary: No symptoms reported Male Genitourinary: No symptoms reported Musculoskeletal: No symptoms reported Skin: No symptoms reported Hematologic/Lymphatic: No symptoms reported Neurological/Psychological: No symptoms reported Physical Exam - Vital signs Vitals: BP 151/95 H 12/20/18 23:01 - Notes Notes: Physical Exam: General: Alert, slightly anxious. HEENT: Normocephalic. Atraumatic. PERRL. Extraocular movements intact. Oropharynx clear. Neck: Supple. Non-tender. Respiratory: Short of breath. Clear and equal breath sounds bilaterally. Cardiovascular: Tachycardic. Radial pulse strong, slightly irregular. Regular rhythm. Abdominal: Colostomy. Non-tender. No distension. Normal Bowel Sounds. Back: Non-tender. No deformity or step off. Extremities: Moves all four extremities. Upper extremities: Normal inspection. Normal ROM. Lower extremities: Normal inspection. No edema. Normal ROM. Neurological: Normal cognition. AAOx4. Normal speech. Psychological: Normal affect. Normal Mood. Skin: Warm. Dry, not diaphoretic. Normal color. Course - Re-evaluation Re-evalutation: 12/21/18 07:36 After the patient had been on the Cardizem drip, his rate slowed down to the 120 range, and was found to be most likely sinus with PACs versus flutter. Repeat EKG will be done to try to determine. Patient states that his breathing does feel little bit better at this point. 12/21/18 07:49 Repeat EKG shows patient in a sinus tachycardia with a rate of 110, otherwise a normal EKG. - Vital Signs Vital signs: Temp Pulse Resp BP Pulse Ox 98.0 F 88 18 129/63 H 93 12/21/18 12:08 12/21/18 13:08 12/21/18 13:08 12/21/18 12:08 12/21/18 13:08 - Laboratory Result Diagrams: 12/21/18 06:30 12/21/18 06:30 Laboratory results interpreted by me: 12/21/18 12/21/18 12/21/18 06:28 06:30 06:30 WBC 17.4 H Lymphocytes % 11.3 L Monocytes % 14.6 H Absolute Neutrophils 12.8 H Absolute Monocytes 2.5 H ABG pO2 ABG HCO3 BUN 23 H Glucose 170 H POC Glucose 148 H Direct Bilirubin 0.5 H Creatine Kinase 50 L NT-Pro-B Natriuret Pep Total Protein 6.0 L Albumin 3.3 L 12/21/18 12/21/18 06:30 07:54 WBC Lymphocytes % Monocytes % Absolute Neutrophils Absolute Monocytes ABG pO2 71.9 L ABG HCO3 24.4 H BUN Glucose POC Glucose Direct Bilirubin Creatine Kinase NT-Pro-B Natriuret Pep 1989 H Total Protein Albumin - Diagnostic Test Radiology reviewed: Image reviewed, Reports reviewed - COPD. Patchy airspace opacities in the right midlung, left hilar region, left lung base. - EKG Interpretation by Me EKG shows normal: [place], Intervals, QRS Complexes. abnormal: ST-T Waves - Rate related repolarization abnormality Rate: Tachycardia - 183 Rhythm: A.Fib - Consults Dr. Isabel Time consulted: 08:26 Consulted provider: will come to ER Critical Care Note - Critical Care Note Total time excluding time spent on procedures (mins): 45 Discharge - Discharge Clinical Impression: Atrial fibrillation, new onset, Atrial fibrillation with RVR, Elevated troponin I level Pneumonia Qualifiers: Pneumonia type: due to unspecified organism Laterality: bilateral Lung location: unspecified part of lung Qualified Code(s): J18.9 - Pneumonia, unspecified organism Type 2 diabetes mellitus Qualifiers: Diabetes mellitus skilled nursing insulin use: with skilled nursing use Diabetes mellitus complication status: with unspecified complications Qualified Code(s): E11.8 - Type 2 diabetes mellitus with unspecified complications; Z79.4 - [facility] (current) use of insulin Condition: Fair Disposition: ADMITTED INPATIENT Admitting Provider: Maame (Hospitalist) Unit Admitted: Telemetry Scribe Attestation: 12/21/18 08:36 I personally performed the services described in the documentation, reviewed and edited the documentation which was dictated to the scribe in my presence, and it accurately records my words and actions. I personally performed the services described in the documentation, reviewed and edited the documentation which was dictated to the scribe in my presence, and it accurately records my words and actions.
[2018-12-21] MEDS: HEPARIN SOD (PORCINE) 5,000 UNIT/ML 1 ML SYRINGE SUBCUT SCH ×2 (15:17→22:07)
--- NOTE | 2018-12-21 16:31 | EKG REPORT ---
SEVERITY:- OTHERWISE NORMAL ECG - SINUS TACHYCARDIA : Confirmed by: Edward Rod MD 21-Dec-2018 16:29:54
[2018-12-21] MEDS: INSULIN GLARGINE,HUM.REC.ANLOG 1,000 UNIT/10 ML VIAL SUBCUT SCH (17:31)
[2018-12-21] MEDS ORDERED: CEFTRIAXONE SODIUM 1,000 MG in DEXTROSE 5%-WATER 100 ML IV SCH (22:00)
[2018-12-21] MEDS: MONTELUKAST SODIUM 10 MG TABLET PO SCH (22:09)
[2018-12-21] MEDS: DOXYCYCLINE HYCLATE 100 MG TABLET PO SCH (22:09)
[2018-12-22] MEDS: LEVALBUTEROL HCL NEB 0.63 MG/3 ML AMPUL NEB PRN ×7 (00:12→23:59)
[2018-12-22 06:04] LABS: HEMATOCRIT 41.2 % (37.9-51.0); HEMOGLOBIN 13.7 g/dL (13.5-17.0); MEAN CORPUSCULAR HEMOGLOBIN 30.5 pg (27.0-33.4); MEAN CORPUSCULAR HGB CONC 33.2 g/dL (32.0-36.0); MEAN CORPUSCULAR VOLUME 92 fl (80-97); PLATELET COUNT 299 10^3/uL (150-450); RED BLOOD COUNT 4.48 10^6/uL (4.35-5.55); WHITE BLOOD COUNT 14.5 10^3/uL (4.0-10.5)
[2018-12-22 06:34] LABS: ANION GAP 10 (5-19); BLOOD UREA NITROGEN 19 mg/dL (7-20); CALCIUM 8.7 mg/dL (8.4-10.2); CARBON DIOXIDE 28 mmol/L (22-30); CHLORIDE 104 mmol/L (98-107); GLUCOSE 132 mg/dL (75-110); POTASSIUM 4.3 mmol/L (3.6-5.0); SODIUM 141.9 mmol/L (137-145)
[2018-12-22] MEDS: HEPARIN SOD (PORCINE) 5,000 UNIT/ML 1 ML SYRINGE SUBCUT SCH ×3 (06:34→22:06)
[2018-12-22] MEDS: CEFTRIAXONE SODIUM 1,000 MG in DEXTROSE 5%-WATER 50 ML IV SCH (09:16)
[2018-12-22] MEDS: DOXYCYCLINE HYCLATE 100 MG TABLET PO SCH ×2 (09:17→22:06)
[2018-12-22] MEDS: SOTALOL HCL 80 MG TABLET PO SCH ×2 (09:17→22:05)
[2018-12-22] MEDS: ASPIRIN 81 MG TABLET, CHEWABLE PO SCH (09:17)
--- NOTE | 2018-12-22 17:43 | PDOC PROGRESS REPORT ---
Subjective Progress Note for:: 12/22/18 Subjective:: No adverse events overnight. No new complaints. He is been napping a lot today because he said he did not sleep very well last night, he only got about 1 hour increments a few times throughout the night. He says he feels better overall. No chest pain or palpitations. No fevers. Cough is improved. Reason For Visit: COMMUNITY ACQUIRED PNA,AFIB/RVR Physical Exam Vital Signs: Temp Pulse Resp BP Pulse Ox 98.1 F 90 16 135/73 H 95 12/22/18 11:28 12/22/18 14:00 12/22/18 12:05 12/22/18 11:28 12/22/18 12:05 Intake & Output 12/21/18 12/22/18 12/23/18 06:59 06:59 06:59 Intake Total 2554 50 Balance 2554 50 Weight 72.6 kg 53.3 kg General appearance: PRESENT: no acute distress, cooperative, disheveled, hard of hearing Respiratory exam: PRESENT: crackles -faint, improved, bibasilar; decreased breath sounds - Generalized, symmetrical, unlabored. ABSENT: accessory muscle use, chest wall tenderness, prolonged expiratory phase, rhonchi, tachypnea, wheezes Cardiovascular exam: PRESENT: RRR, +S1, +S2. ABSENT: diastolic murmur, systolic murmur Pulses: PRESENT: normal carotid pulses Vascular exam: PRESENT: normal capillary refill GI/Abdominal exam: PRESENT: normal bowel sounds, soft. ABSENT: distended, guarding, rebound, tenderness Extremities exam: ABSENT: clubbing, pedal edema Musculoskeletal exam: PRESENT: normal inspection. ABSENT: deformity Neurological exam: PRESENT: alert, awake, oriented to person, oriented to place, oriented to time, oriented to situation Results Laboratory Results: 12/22/18 05:45 12/22/18 05:45 12/22/18 12/22/18 05:45 05:45 WBC 14.5 H RBC 4.48 Hgb 13.7 Hct 41.2 MCV 92 MCH 30.5 MCHC 33.2 RDW 13.0 Plt Count 299 Sodium 141.9 Potassium 4.3 Chloride 104 Carbon Dioxide 28 Anion Gap 10 BUN 19 Creatinine 0.52 Est GFR ( Amer) > 60 Est GFR (Non-Af Amer) > 60 Glucose 132 H Calcium 8.7 12/21/18 12/21/18 12/21/18 06:30 06:30 08:15 Creatine Kinase 50 L CK-MB (CK-2) 0.97 Troponin I 0.133 0.118 NT-Pro-B Natriuret Pep 1989 H 12/21/18 12/21/18 14:24 20:43 Creatine Kinase CK-MB (CK-2) Troponin I 0.097 0.095 NT-Pro-B Natriuret Pep Impressions: Chest X-Ray 12/21/18 06:27 IMPRESSION: 1. Interval development of patchy opacities in the right mid lung and left lung base may represent atelectasis or developing pneumonic process. 2. Obstructive lung disease. Assessment and Plan - Diagnosis (1) Multifocal pneumonia Is this a current diagnosis for this admission?: Yes Plan: Cultures are pending. Currently on Rocephin and doxycycline. Overall is improving. We will try to wean O2 as tolerated. (2) Atrial fibrillation with rapid ventricular response Is this a current diagnosis for this admission?: Yes Plan: Resolved. He is been put on sotalol Dr. Myers's recommendation. He will follow-up with Dr. Myers in the office after the hospital. (3) Type 2 diabetes mellitus Qualifiers: Diabetes mellitus assisted insulin use: with assisted use Diabetes mellitus complication status: with unspecified complications Qualified Code(s): E11.8 - Type 2 diabetes mellitus with unspecified complications; Z79.4 - extermination supervisor (current) use of insulin Is this a current diagnosis for this admission?: Yes Plan: Well-controlled on his home insulin regimen and a consistent carbohydrate diet - Time Time Spent with patient: 15-24 minutes
[2018-12-22] MEDS: INSULIN GLARGINE,HUM.REC.ANLOG 1,000 UNIT/10 ML VIAL SUBCUT SCH (18:05)
[2018-12-22] MEDS: MONTELUKAST SODIUM 10 MG TABLET PO SCH (22:06)
[2018-12-23] MEDS: LEVALBUTEROL HCL NEB 0.63 MG/3 ML AMPUL NEB PRN ×4 (04:03→23:48)
[2018-12-23] MEDS: HEPARIN SOD (PORCINE) 5,000 UNIT/ML 1 ML SYRINGE SUBCUT SCH (05:44)
[2018-12-23 06:53] LABS: HEMATOCRIT 42.2 % (37.9-51.0); HEMOGLOBIN 14.2 g/dL (13.5-17.0); MEAN CORPUSCULAR HEMOGLOBIN 30.7 pg (27.0-33.4); MEAN CORPUSCULAR HGB CONC 33.6 g/dL (32.0-36.0); MEAN CORPUSCULAR VOLUME 92 fl (80-97); PLATELET COUNT 281 10^3/uL (150-450); RED BLOOD COUNT 4.62 10^6/uL (4.35-5.55); RED CELL DISTRIBUTION WIDTH 12.8 % (11.5-14.0); WHITE BLOOD COUNT 10.6 10^3/uL (4.0-10.5)
[2018-12-23 07:09] LABS: ANION GAP 9 (5-19); BLOOD UREA NITROGEN 17 mg/dL (7-20); CARBON DIOXIDE 31 mmol/L (22-30); CHLORIDE 101 mmol/L (98-107); GLUCOSE 87 mg/dL (75-110); POTASSIUM 4.2 mmol/L (3.6-5.0); SODIUM 141.2 mmol/L (137-145)
--- NOTE | 2018-12-23 09:03 | EKG REPORT ---
SEVERITY:- BORDERLINE ECG - SINUS RHYTHM PROBABLE LEFT ATRIAL ABNORMALITY : Confirmed by: Edward Rod MD 23-Dec-2018 09:02:47
[2018-12-23] MEDS: SOTALOL HCL 80 MG TABLET PO SCH ×2 (10:08→22:42)
[2018-12-23] MEDS: ASPIRIN 81 MG TABLET, CHEWABLE PO SCH (10:08)
[2018-12-23] MEDS: CEFTRIAXONE SODIUM 1,000 MG in DEXTROSE 5%-WATER 50 ML IV SCH (10:08)
[2018-12-23] MEDS: DOXYCYCLINE HYCLATE 100 MG TABLET PO SCH ×2 (10:08→22:42)
[2018-12-23] MEDS ORDERED: DILTIAZEM HCL INJ 25 MG/5 ML VIAL ONE (10:24)
[2018-12-23] MEDS ORDERED: DILTIAZEM HCL INJ 25 MG/5 ML VIAL IV ONE (10:30)
[2018-12-23] MEDS: APIXABAN 5 MG TABLET PO SCH (17:11)
[2018-12-23] MEDS: INSULIN GLARGINE,HUM.REC.ANLOG 1,000 UNIT/10 ML VIAL SUBCUT SCH (17:17)
--- NOTE | 2018-12-23 17:20 | PDOC PROGRESS REPORT ---
Subjective Progress Note for:: 12/23/18 Subjective:: No adverse events overnight. He got up to go to the bathroom today and he disconnected his telemetry. When he came back and reconnected that he was in atrial fibrillation with RVR. He was given his sotalol early but his heart rate did not come down. He got a single IV push dose of Cardizem, and right as I was about to put him on a Cardizem drip he converted back to a sinus rhythm. He said that during that episode he got acutely short of breath, and when he kicked back into a sinus rhythm his breathing improved. Reason For Visit: COMMUNITY ACQUIRED PNA,AFIB/RVR Physical Exam Vital Signs: Temp Pulse Resp BP Pulse Ox 98.2 F 80 18 113/77 95 12/23/18 12:00 12/23/18 14:00 12/23/18 12:32 12/23/18 12:00 12/23/18 12:32 Intake & Output 12/22/18 12/23/18 12/24/18 06:59 06:59 06:59 Intake Total 2554 365 50 Balance 2554 365 50 Weight 53.3 kg 53.3 kg General appearance: PRESENT: no acute distress, cooperative, disheveled, hard of hearing Respiratory exam: PRESENT: decreased breath sounds - Generalized, symmetrical, unlabored. ABSENT: accessory muscle use, chest wall tenderness, crackles, prolonged expiratory phase, rhonchi, tachypnea, wheezes Cardiovascular exam: PRESENT: RRR, +S1, +S2. ABSENT: diastolic murmur, systolic murmur Pulses: PRESENT: normal carotid pulses Vascular exam: PRESENT: normal capillary refill GI/Abdominal exam: PRESENT: normal bowel sounds, soft. ABSENT: distended, guarding, rebound, tenderness Extremities exam: ABSENT: clubbing, pedal edema Musculoskeletal exam: PRESENT: normal inspection. ABSENT: deformity Neurological exam: PRESENT: alert, awake, oriented to person, oriented to place, oriented to time, oriented to situation Results Laboratory Results: 12/23/18 06:20 12/23/18 06:20 12/23/18 12/23/18 06:20 06:20 WBC 10.6 H RBC 4.62 Hgb 14.2 Hct 42.2 MCV 92 MCH 30.7 MCHC 33.6 RDW 12.8 Plt Count 281 Sodium 141.2 Potassium 4.2 Chloride 101 Carbon Dioxide 31 H Anion Gap 9 BUN 17 Creatinine 0.51 L Est GFR ( Amer) > 60 Est GFR (Non-Af Amer) > 60 Glucose 87 Calcium 9.0 12/21/18 12/21/18 12/21/18 06:30 06:30 08:15 Creatine Kinase 50 L CK-MB (CK-2) 0.97 Troponin I 0.133 0.118 NT-Pro-B Natriuret Pep 1990 H 12/21/18 12/21/18 14:24 20:43 Creatine Kinase CK-MB (CK-2) Troponin I 0.097 0.095 NT-Pro-B Natriuret Pep Impressions: Chest X-Ray 12/21/18 06:27 IMPRESSION: 1. Interval development of patchy opacities in the right mid lung and left lung base may represent atelectasis or developing pneumonic process. 2. Obstructive lung disease. Assessment and Plan - Diagnosis (1) Multifocal pneumonia Is this a current diagnosis for this admission?: Yes Plan: Cultures are pending, currently negative. Currently on Rocephin and doxycycline. Overall is improving. Back on room air. (2) Atrial fibrillation with rapid ventricular response Is this a current diagnosis for this admission?: Yes Plan: Because of his episode this morning, Dr. Myers recommended increasing his sotalol to 80 mg twice a day and starting him on Eliquis. (3) Type 2 diabetes mellitus Qualifiers: Diabetes mellitus exterminator termite insulin use: with shelter use Diabetes mellitus complication status: with unspecified complications Qualified Code(s): E11.8 - Type 2 diabetes mellitus with unspecified complications; Z79.4 - intermediate school teacher (current) use of insulin Is this a current diagnosis for this admission?: Yes Plan: Well-controlled on his home insulin regimen and a consistent carbohydrate diet - Time Time Spent with patient: 25-34 minutes
--- NOTE | 2018-12-23 17:50 | EKG REPORT ---
SEVERITY:- BORDERLINE ECG - SINUS RHYTHM PROBABLE LEFT ATRIAL ABNORMALITY : Confirmed by: Edward Rod MD 23-Dec-2018 17:49:48
[2018-12-23] MEDS: MONTELUKAST SODIUM 10 MG TABLET PO SCH (22:40)
--- NOTE | 2018-12-24 06:40 | EKG REPORT ---
SEVERITY:- BORDERLINE ECG - SINUS RHYTHM PROBABLE LEFT ATRIAL ABNORMALITY BORDERLINE PROLONGED QT INTERVAL : Confirmed by: Edward Rod MD 24-Dec-2018 06:39:48
[2018-12-24 06:48] LABS: HEMATOCRIT 43.9 % (37.9-51.0); HEMOGLOBIN 14.9 g/dL (13.5-17.0); MEAN CORPUSCULAR HEMOGLOBIN 30.9 pg (27.0-33.4); MEAN CORPUSCULAR HGB CONC 33.9 g/dL (32.0-36.0); MEAN CORPUSCULAR VOLUME 91 fl (80-97); PLATELET COUNT 385 10^3/uL (150-450); RED BLOOD COUNT 4.81 10^6/uL (4.35-5.55); RED CELL DISTRIBUTION WIDTH 12.6 % (11.5-14.0); WHITE BLOOD COUNT 9.6 10^3/uL (4.0-10.5)
[2018-12-24 07:21] LABS: ANION GAP 9 (5-19); BLOOD UREA NITROGEN 16 mg/dL (7-20); CALCIUM 9.2 mg/dL (8.4-10.2); CARBON DIOXIDE 32 mmol/L (22-30); CHLORIDE 101 mmol/L (98-107); GLUCOSE 116 mg/dL (75-110); POTASSIUM 4.5 mmol/L (3.6-5.0); SODIUM 142.3 mmol/L (137-145)
[2018-12-24] MEDS: DOXYCYCLINE HYCLATE 100 MG TABLET PO SCH ×2 (09:59→22:57)
[2018-12-24] MEDS: APIXABAN 5 MG TABLET PO SCH ×2 (09:59→18:12)
[2018-12-24] MEDS: ASPIRIN 81 MG TABLET, CHEWABLE PO SCH (09:59)
[2018-12-24] MEDS: SOTALOL HCL 80 MG TABLET PO SCH ×2 (10:00→22:57)
[2018-12-24] MEDS: CEFTRIAXONE SODIUM 1,000 MG in DEXTROSE 5%-WATER 50 ML IV SCH (10:00)
[2018-12-24] MEDS: INSULIN GLARGINE,HUM.REC.ANLOG 1,000 UNIT/10 ML VIAL SUBCUT SCH (16:49)
--- NOTE | 2018-12-24 17:04 | PDOC PROGRESS REPORT ---
Subjective Progress Note for:: 12/24/18 Subjective:: No adverse events overnight. No new complaints. Heart rhythm remains normal sinus rhythm. No fevers. Still requiring oxygen. No wheezing. Reason For Visit: COMMUNITY ACQUIRED PNA,AFIB/RVR Physical Exam Vital Signs: Temp Pulse Resp BP Pulse Ox 97.6 F 86 21 H 153/78 H 88 L 12/24/18 11:08 12/24/18 14:00 12/24/18 11:08 12/24/18 11:08 12/24/18 14:03 Intake & Output 12/23/18 12/24/18 12/25/18 06:59 06:59 06:59 Intake Total 365 530 879 Balance 365 530 879 Weight 53.3 kg 53.2 kg General appearance: PRESENT: no acute distress, cooperative, disheveled, hard of hearing Respiratory exam: PRESENT: decreased breath sounds - Generalized, symmetrical, unlabored. ABSENT: accessory muscle use, chest wall tenderness, crackles, prolonged expiratory phase, rhonchi, tachypnea, wheezes Cardiovascular exam: PRESENT: RRR, +S1, +S2. ABSENT: diastolic murmur, systolic murmur Pulses: PRESENT: normal carotid pulses Vascular exam: PRESENT: normal capillary refill GI/Abdominal exam: PRESENT: normal bowel sounds, soft. ABSENT: distended, guarding, rebound, tenderness Extremities exam: ABSENT: clubbing, pedal edema Musculoskeletal exam: PRESENT: normal inspection. ABSENT: deformity Neurological exam: PRESENT: alert, awake, oriented to person, oriented to place, oriented to time, oriented to situation Results Laboratory Results: 12/24/18 06:28 12/24/18 06:28 12/24/18 12/24/18 06:28 06:28 WBC 9.6 RBC 4.81 Hgb 14.9 Hct 43.9 MCV 91 MCH 30.9 MCHC 33.9 RDW 12.6 Plt Count 385 Sodium 142.3 Potassium 4.5 Chloride 101 Carbon Dioxide 32 H Anion Gap 9 BUN 16 Creatinine 0.54 Est GFR ( Amer) > 60 Est GFR (Non-Af Amer) > 60 Glucose 116 H Calcium 9.2 12/22/18 13:43 Sputum Gram Stain - Final 12/22/18 13:43 Sputum Sputum Culture - Final C.albicans/C.dubliniensis Normal Julia 12/21/18 12/21/1812/21/19 06:30 06:30 08:15 Creatine Kinase 50 L CK-MB (CK-2) 0.97 Troponin I 0.133 0.118 NT-Pro-B Natriuret Pep 198912/21/18 12/21/18 14:24 20:43 Creatine Kinase CK-MB (CK-2) Troponin I 0.097 0.095 NT-Pro-B Natriuret Pep Impressions: Chest X-Ray 12/21/18 06:27 IMPRESSION: 1. Interval development of patchy opacities in the right mid lung and left lung base may represent atelectasis or developing pneumonic process. 2. Obstructive lung disease. Assessment and Plan - Diagnosis (1) Multifocal pneumonia Is this a current diagnosis for this admission?: Yes Plan: Cultures are pending, sputum culture shows a Ivette species and normal julia. Currently on Rocephin and doxycycline. Overall is improving but slowly. SPO2 is usually around 90% at rest, but occasionally still drops down into the 80s. He desaturates on room air when ambulating.. (2) Atrial fibrillation with rapid ventricular response Is this a current diagnosis for this admission?: Yes Plan: Currently holding stable on 80 mg of sotalol twice a day. Anticoagulated. We will follow-up with Dr. Myers in the office for an echocardiogram and a stress test once his pneumonia has resolved. 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 He is slowly improving but is still requiring oxygen intermittently. He was not on oxygen at home and was independent with all of his daily activities and was not really restricted in any significant way. We will attempt to try to get him off oxygen before we send him home. - Time Time Spent with patient: 15-24 minutes
[2018-12-24] MEDS: MONTELUKAST SODIUM 10 MG TABLET PO SCH (22:57)
[2018-12-25] MEDS: CEFTRIAXONE SODIUM 1,000 MG in DEXTROSE 5%-WATER 50 ML IV SCH (10:40)
[2018-12-25] MEDS: APIXABAN 5 MG TABLET PO SCH ×2 (10:40→17:29)
[2018-12-25] MEDS: ASPIRIN 81 MG TABLET, CHEWABLE PO SCH (10:40)
[2018-12-25] MEDS: SOTALOL HCL 80 MG TABLET PO SCH ×2 (10:41→21:35)
[2018-12-25] MEDS: DOXYCYCLINE HYCLATE 100 MG TABLET PO SCH ×2 (10:41→21:36)
[2018-12-25] MEDS: INSULIN GLARGINE,HUM.REC.ANLOG 1,000 UNIT/10 ML VIAL SUBCUT SCH (17:28)
--- NOTE | 2018-12-25 18:11 | PDOC PROGRESS REPORT ---
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 In the ER, he was noted to be in atrial fibrillation with RVR. He was put on a Cardizem drip and has subsequently converted back to a sinus rhythm. His chest x-ray also showed a multifocal pneumonia. He was started on antibiotics. He is also currently on Eliquis and sotalol. No acute event overnight. He is currently saturating well on 2 lpm via NC. He says he is not on home O2. He says his SOB continue to improve. Will try to wean him off O2 today. Reason For Visit: COMMUNITY ACQUIRED PNA,AFIB/RVR Physical Exam Vital Signs: Temp Pulse Resp BP Pulse Ox 97.8 F 88 21 H 139/69 H 95 12/25/18 16:00 12/25/18 16:00 12/25/18 16:00 12/25/18 16:00 12/25/18 16:00 Intake & Output 12/24/18 12/25/18 12/26/18 06:59 06:59 06:59 Intake Total 530 1413 50 Balance 530 1413 50 Weight 117 lb 4.575 oz 119 lb 0.794 oz General appearance: PRESENT: no acute distress, well-developed, well-nourished Head exam: PRESENT: atraumatic, normocephalic Eye exam: PRESENT: conjunctiva pink, EOMI, PERRLA. ABSENT: scleral icterus Ear exam: PRESENT: normal external ear exam Mouth exam: PRESENT: moist, tongue midline Neck exam: ABSENT: carotid bruit, JVD, lymphadenopathy, thyromegaly Respiratory exam: PRESENT: rhonchi. ABSENT: rales, wheezes Cardiovascular exam: PRESENT: RRR. ABSENT: diastolic murmur, rubs, systolic murmur Pulses: PRESENT: normal dorsalis pedis pul GI/Abdominal exam: PRESENT: normal bowel sounds, soft. ABSENT: distended, guarding, mass, organolmegaly, rebound, tenderness Rectal exam: PRESENT: deferred Neurological exam: PRESENT: alert, awake, oriented to person, oriented to place, oriented to time, oriented to situation, CN II-XII grossly intact. ABSENT: motor sensory deficit Results Laboratory Results: 12/24/18 06:28 12/24/18 06:28 12/21/18 12/21/18 12/21/18 06:30 06:30 08:15 Creatine Kinase 50 L CK-MB (CK-2) 0.97 Troponin I 0.133 0.118 NT-Pro-B Natriuret Pep 1990 H 12/21/18 12/21/18 14:24 20:43 Creatine Kinase CK-MB (CK-2) Troponin I 0.097 0.095 NT-Pro-B Natriuret Pep Impressions: Chest X-Ray 12/21/18 06:27 IMPRESSION: 1. Interval development of patchy opacities in the right mid lung and left lung base may represent atelectasis or developing pneumonic process. 2. Obstructive lung disease. Assessment and Plan - Diagnosis (1) Acute hypoxemic respiratory failure Is this a current diagnosis for this admission?: Yes Plan: Will try to wean him off O2 today. (2) Atrial fibrillation with rapid ventricular response Is this a current diagnosis for this admission?: Yes Plan: Rate controlled. Started on Eliquis and sotalol. He willl follow-up with Dr. Myers in the office for an echocardiogram and a stress test once his pneumonia has resolved. (3) Multifocal pneumonia Is this a current diagnosis for this admission?: Yes Plan: Continue antibiotics. (4) Lung mass Is this a current diagnosis for this admission?: Yes Plan: He has a known left upper lobe mass diagnosed in Aug 2017. He specifically says he does not want us doing further work up on this here and would rather have his PCP deal with it. - Time Time Spent with patient: 25-34 minutes
[2018-12-25] MEDS: LEVALBUTEROL HCL NEB 0.63 MG/3 ML AMPUL NEB PRN (20:05)
[2018-12-25] MEDS: MONTELUKAST SODIUM 10 MG TABLET PO SCH (21:35)
[2018-12-26 03:54] LABS: ALANINE AMINOTRANSFERASE 40 U/L (21-72); ALBUMIN 2.8 g/dL (3.5-5.0); ALKALINE PHOSPHATASE 81 U/L (38-126); ANION GAP 9 (5-19); ASPARTATE AMINO TRANSFERASE 22 U/L (17-59); BILIRUBIN,DIRECT 0.4 mg/dL (0.0-0.4); BILIRUBIN,TOTAL 0.6 mg/dL (0.2-1.3); BLOOD UREA NITROGEN 18 mg/dL (7-20); CARBON DIOXIDE 30 mmol/L (22-30); CHLORIDE 102 mmol/L (98-107); GLUCOSE 144 mg/dL (75-110); POTASSIUM 4.1 mmol/L (3.6-5.0); SODIUM 141.1 mmol/L (137-145); TOTAL PROTEIN 5.6 g/dL (6.3-8.2)
--- NOTE | 2018-12-26 08:43 | RADIOLOGY REPORT (SQ) ---
EXAM DESCRIPTION: CHEST SINGLE VIEW COMPLETED DATE/TIME: 12/26/2018 8:13 am REASON FOR STUDY: reassess infiltrates COMPARISON: 12/21/2018 NUMBER OF VIEWS: One view. TECHNIQUE: Single frontal radiographic image of the chest acquired. LIMITATIONS: None. FINDINGS: LUNGS AND PLEURA: Patchy bilateral airspace disease remains right greater than left. Ther e has been no significant interval change from prior study. MEDIASTINUM AND HILAR STRUCTURES: Stable heart size and mediastinal structures. HEART AND VASCULAR STRUCTURES: Stable appearance. BONES: No acute findings. HARDWARE: None in the chest. OTHER: No other significant finding. IMPRESSION: STABLE APPEARANCE OF THE CHEST. TECHNICAL DOCUMENTATION: JOB ID: [id number] [employer]- All Rights Reserved Reading location - IP/workstation name: [email or web address]
[2018-12-26] MEDS: SOTALOL HCL 80 MG TABLET PO SCH (10:10)
[2018-12-26] MEDS: ASPIRIN 81 MG TABLET, CHEWABLE PO SCH (10:10)
[2018-12-26] MEDS: APIXABAN 5 MG TABLET PO SCH (10:10)
[2018-12-26] MEDS: CEFTRIAXONE SODIUM 1,000 MG in DEXTROSE 5%-WATER 50 ML IV SCH (10:11)
[2018-12-26] MEDS: DOXYCYCLINE HYCLATE 100 MG TABLET PO SCH (10:11)
--- NOTE | 2018-12-26 10:59 | EKG REPORT ---
SEVERITY:- ABNORMAL ECG - SINUS RHYTHM PROBABLE LEFT ATRIAL ABNORMALITY NONSPECIFIC T ABNORMALITIES, ANT-LAT LEADS PROLONGED QT INTERVAL : Confirmed by: Leroy Avalos 26-Dec-2018 10:58:57
--- NOTE | 2018-12-26 10:59 | EKG REPORT ---
SEVERITY:- BORDERLINE ECG - SINUS RHYTHM ATRIAL PREMATURE COMPLEX BORDERLINE PROLONGED QT INTERVAL : Confirmed by: Leroy Avalos 26-Dec-2018 10:58:49
[2018-12-26 12:51] LABS: FREE T3 7.5 pg/mL (2.77-5.27)
[2018-12-26 14:40] VITALS: BP 115/63
--- NOTE | 2018-12-27 18:51 | PDOC DISCHARGE SUMMARY ---
General - Admit/Disc Date/PCP Admission Date/Primary Care Provider: 12/21/18 10:15 SRINATH FRANCISCO Discharge Date: 12/26/18 - Discharge Diagnosis (1) Acute hypoxemic respiratory failure Is this a current diagnosis for this admission?: Yes (2) Atrial fibrillation with rapid ventricular response Is this a current diagnosis for this admission?: Yes (3) Multifocal pneumonia Is this a current diagnosis for this admission?: Yes (4) Lung mass Is this a current diagnosis for this admission?: Yes (5) Hyperthyroidism Is this a current diagnosis for this admission?: Yes (6) Pneumonia Is this a current diagnosis for this admission?: Yes - Additional Information Discharge Diet: As Tolerated Discharge Activity: Activity As Tolerated Prescriptions: Apixaban [Eliquis 5 mg Tablet] 5 mg PO BID #60 tablet Aspirin [Aspirin 81 mg Chewable Tablet] 81 mg PO DAILY #30 tab.chew Levofloxacin [Levaquin 750 mg Tablet] 750 mg PO DAILY 3 Days #3 tablet Methimazole [Tapazole 5 Mg Tablet] 5 mg PO Q8 #90 tablet Sotalol HCl [Betapace 80 mg Tablet] 80 mg PO Q12 #60 tablet Home Medications: Ascorbic Acid [Vitamin C 500 mg Tablet] 500 mg PO DAILY 09/27/17 Cholecalciferol (Vitamin D3) [Vitamin D3 1000 Unit Tablet] 1,000 unit PO DAILY 09/27/17 Insulin Glargine,Hum.rec.anlog [Lantus] 18 - 20 unit SQ DAILY 09/27/17 Multivitamin [Tab-A-Ilene (Multiple Vitamin) Tablet] 1 tab PO DAILY 09/27/17 Vitamin B Complex [B Complex] 1 tab PO DAILY 09/27/17 [place]-3 Fatty Acids/Fish Oil [[place] 3 Fish Oil Softgel] 1 each PO DAILY 12/21/18 Apixaban [Eliquis 5 mg Tablet] 5 mg PO BID #60 tablet 12/26/18 Aspirin [Aspirin 81 mg Chewable Tablet] 81 mg PO DAILY #30 tab.chew 12/26/18 Levofloxacin [Levaquin 750 mg Tablet] 750 mg PO DAILY 3 Days #3 tablet 12/26/18 Methimazole [Tapazole 5 Mg Tablet] 5 mg PO Q8 #90 tablet 12/26/18 Sotalol HCl [Betapace 80 mg Tablet] 80 mg PO Q12 #60 tablet 12/26/18 History of Present Illness History of Present Illness: Admitting hospitalist's H&P: MANISH SHANNON is a 78 year old male who smoked for 62 years, quit 10 years ago, and has a history of insulin-dependent diabetes, who comes in with a 4-day history of shortness of breath. He said he was out cutting grass and was around a lot of pollen and thought that was what was causing him to have trouble with his breathing. He said is gotten progressively worse. He has not had much of a cough, and what he has has not been productive. He is not been running a fever. He denies any chest pain or palpitations. When he came in he was noted to have a substantially elevated heart rate, which looked like atrial fibrillation with RVR. He was put on a Cardizem drip and has subsequently converted back to a sinus rhythm. He said he had at least one episode like this before, last year when he was in the hospital in [place] and got a nebulizer treatment and his heart rhythm flipped over in atrial fibrillation. He said that this converted back to normal rhythm also. He has no history of coronary artery disease, [place], cardiac catheterization, or heart surgery of any sort. He said he had a stress test many years ago and does not remember much about it except he thinks it was normal. He was placed on some oxygen in the ER. His chest x-ray showed a multi focal pneumonia. 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 In the ER, he was noted to be in atrial fibrillation with RVR. He was put on a Cardizem drip and subsequently converted back to a sinus rhythm. He was started on sotalol and Eliquis. Risks and benefits of anticoagulation discussed. His chest x-ray also showed a multifocal pneumonia. He was also started on IV antibiotics. He did return to his baseline. He was eventually weaned off O2 and ambulated the hallways on room air without any difficulty or desaturation. His thyroid work-up came back remarkable for significant hypothyroidism. In light of his at ria fibrillation, this will be treated and he will be started on. He has been recommended to repeat his thyroid panel and appropriate dose adjustment of his methimazole with his PCP. Patient was diagnosed with a left upper lobe nodule/mass and the right 2018. He says that he went to tube and that this was removed there. Physical Exam Vital Signs: Temp Pulse Resp BP Pulse Ox 97.7 F 86 16 115/63 90 L 12/26/18 14:15 12/26/18 14:15 12/26/18 14:15 12/26/18 14:15 12/26/18 14:15 Intake & Output 12/26/18 12/27/18 12/28/18 06:59 06:59 06:59 Intake Total 1550 821 Balance 1550 821 Weight 118 lb 2.684 oz General appearance: PRESENT: no acute distress, well-developed, well-nourished Head exam: PRESENT: atraumatic, normocephalic Eye exam: PRESENT: conjunctiva pink, EOMI, PERRLA. ABSENT: scleral icterus Ear exam: PRESENT: normal external ear exam Mouth exam: PRESENT: moist, tongue midline Neck exam: ABSENT: carotid bruit, JVD, lymphadenopathy, thyromegaly Respiratory exam: PRESENT: rhonchi. ABSENT: rales, wheezes Cardiovascular exam: PRESENT: RRR. ABSENT: diastolic murmur, rubs, systolic murmur Pulses: PRESENT: normal dorsalis pedis pul GI/Abdominal exam: PRESENT: normal bowel sounds, soft. ABSENT: distended, guarding, mass, organolmegaly, rebound, tenderness Rectal exam: PRESENT: deferred Neurological exam: PRESENT: alert, awake, oriented to person, oriented to place, oriented to time, oriented to situation, CN II-XII grossly intact. ABSENT: motor sensory deficit Results Laboratory Results: 12/24/18 06:28 12/26/18 03:26 12/21/18 12/21/18 12/21/18 06:30 06:30 08:15 Creatine Kinase 50 L CK-MB (CK-2) 0.97 Troponin I 0.133 0.118 NT-Pro-B Natriuret Pep 1990 H 12/21/18 12/21/18 14:24 20:43 Creatine Kinase CK-MB (CK-2) Troponin I 0.097 0.095 NT-Pro-B Natriuret Pep Impressions: Chest X-Ray 12/26/18 07:00 IMPRESSION: STABLE APPEARANCE OF THE CHEST. Qualifiers - * PATIENT BEING DISCHARGED WITH ANY OF THE FOLLOWING DIAGNOSIS: No Acute Heart Failure Is this a Heart Failure Patient?: No
== END 2018-12-26 15:03 | disposition home or self-care (01) | DRG 193 ==
LOC: ER 06:04 → EH 10:15 → 4S 11:10
PROVIDERS: ADMIT Family Medicine; ATTEND Family Medicine
DX: J18.9 Pneumonia, unspecified organism (principal); J96.01 Acute respiratory failure with hypoxia; I48.2 Chronic atrial fibrillation; E11.9 Type 2 diabetes mellitus without complications; E03.9 Hypothyroidism, unspecified; R91.8 Other nonspecific abnormal finding of lung field; Z85.038 Personal history of other malignant neoplasm of large intestine; Z93.3 Colostomy status; Z79.4 Long term (current) use of insulin; Z87.891 Personal history of nicotine dependence; Z79.899 Other long term (current) drug therapy; Z88.8 Allergy status to other drugs, medicaments and biological substances; Z79.02 Long term (current) use of antithrombotics/antiplatelets
CPT/HCPCS: 36415; 71045; 80048; 80053; 82550; 82553; 82803; 82962; 83605; 83735; 83880; 84439; 84443; 84481; 84484; 85025; 85027; 87040; 87070; 87205; 93005; 93010; 94640; 94799; 96361; 96374; 99291; J0696; J1644; J1815; J1956; J3490; J7030; J7060; J7614